=== PATIENT | female | born 1990 | race Caucasian/White ===

== ENCOUNTER 2017-07-10 21:12 | Inpatient (IN) | payer OTHER ==
[~2017-07-10] VITALS: Ht 170.2 cm; Wt 69.7 kg
[2017-07-10 22:00] LABS: HEMATOCRIT 45.7 % (36.0-46.0); HEMOGLOBIN 14.9 G/DL (11.9-15.5); MCH 28.2 PG (29.0-34.0); MCHC 32.6 G/DL (30.0-36.0); MCV 86.4 FL (83-99); PLATELET COUNT 271 K/uL (156-360); RBC DIS.WIDTH-CV 14.2 % (11.8-14.6); RBC DIS.WIDTH-SD 45.1 % (39-53); RED BLOOD COUNT 5.29 M/uL (3.80-5.20); WHITE BLOOD COUNT 15.2 K/uL (4.1-10.2)
[2017-07-10 22:09] LABS: ALBUMIN 4.4 g/dL (3.2-4.8); CHLORIDE 103 mEq/L (99-109); POTASSIUM 4.1 mEq/L (3.7-5.4); SODIUM 137 mEq/L (136-147)
[2017-07-10 22:11] LABS: GLUCOSE 141 mg/dL (70-99); TOTAL PROTEIN 8.1 g/dL (6.4-8.3)
[2017-07-10 22:13] LABS: TOTAL BILIRUBIN 0.3 mg/dL (0.0-1.0)
[2017-07-10 22:14] LABS: SERUM ETHYL ALCOHOL < 10 mg/dL
[2017-07-10 22:15] LABS: ALKALINE PHOSPHATASE 106 IU/L (3-129); CREATININE 1.1 mg/dL (0.6-1.3); GFR ESTIMATE (CALCULATED) > 59 mL/min/
[2017-07-10 22:16] LABS: AST (GOT) 34 IU/L (2-34); UREA NITROGEN (BUN) 16 mg/dL (9-23)
[2017-07-10 22:18] LABS: ALT (GPT) 51 IU/L (3-49)
[2017-07-10 22:23] LABS: QUANTITATIVE HCG < 4.0 MIU/ML
[2017-07-10 23:51] LABS: APPEARANCE CLOUDY ((CLEAR)); BILIRUBIN NEGATIVE; BLOOD NEGATIVE; COLOR YELLOW ((YELLOW)); GLUCOSE (STRIP) 150; KETONES NEGATIVE; LEUKOCYTES SMALL; NITRITE NEGATIVE; PROTEIN (STRIP) 30; SPECIFIC GRAVITY 1.015 (1.000-1.030); UROBILINOGEN 0.2 MG/DL (0.2-1.0)
[2017-07-11] VITALS (7 sets, daily range): BP systolic 86–120; BP diastolic 46–61
[2017-07-11] LABS: AMPHETAMINE NEGATIVE (500 ng/mL); BARBITURATES NEGATIVE (200 ng/mL); BENZODIAZEPINES PRESUMPTIVE POSITIVE (150 ng/mL); BUPRENORPHINE NEGATIVE (10 ng/mL); COCAINE PRESUMPTIVE POSITIVE (150 ng/mL); METHADONE NEGATIVE (200 ng/mL); METHAMPHETAMINE NEGATIVE (500 ng/mL); OPIATES (MORPHINE) PRESUMPTIVE POSITIVE (100 ng/mL); OXYCODONE NEGATIVE (100 ng/mL); PHENCYCLIDINE NEGATIVE (25 ng/mL); PROPOXYPHENE NEGATIVE (300 ng/mL); THC CANNABINOIDS PRESUMPTIVE POSITIVE (50 ng/mL); TRICYCLIC ANTIDEPRESSANTS NEGATIVE (300 ng/mL)
[2017-07-11 00:13] LABS: AMORPHOUS URATES CRYSTALS 3+; BACTERIA 3+ /HPF; EPITHELIAL CELLS 3+ /HPF; MUCUS NONE SEEN /LPF; RED BLOOD CELLS TNTC /HPF (0-5)
[2017-07-11 00:29] LABS: BENZODIAZEPINES, URINE SCREEN POSITIVE (200 ng/mL)
[2017-07-12] VITALS (7 sets, daily range): BP systolic 89–110; BP diastolic 45–68
[2017-07-12 05:43] LABS: BASOPHIL (%) 0.1 % (0-1); EOSINOPHIL (%) 0 % (0-5); HEMATOCRIT 36.2 % (36.0-46.0); HEMOGLOBIN 11.5 G/DL (11.9-15.5); IMMATURE GRANULOCYTE (%) 1.5 % (0.0-0.7); LYMPHOCYTE (%) 4.8 % (15-42); LYMPHOCYTE COUNT 1.1 K/uL (1.0-2.8); MCH 27.5 PG (29.0-34.0); MCHC 31.8 G/DL (30.0-36.0); MCV 86.6 FL (83-99); MONOCYTE (%) 1.6 % (3-12); MONOCYTE COUNT 0.4 K/uL (0-0.8); NEUTROPHIL COUNT 21.5 K/uL (1.8-6.4); PLATELET COUNT 256 K/uL (156-360); RBC DIS.WIDTH-CV 14.6 % (11.8-14.6); RBC DIS.WIDTH-SD 46.6 % (39-53); RED BLOOD COUNT 4.18 M/uL (3.80-5.20); WHITE BLOOD COUNT 23.3 K/uL (4.1-10.2)
[2017-07-13 04:03] VITALS: BP 111/72
[2017-07-13 07:32] VITALS: BP 98/55
[2017-07-13 11:11] VITALS: BP 97/52
[2017-07-13 11:14] LABS: HEMOGLOBIN 11.9 G/DL (11.9-15.5); MCHC 32.2 G/DL (30.0-36.0); MCV 87.1 FL (83-99); PLATELET COUNT 300 K/uL (156-360); RBC DIS.WIDTH-CV 14.6 % (11.8-14.6); RBC DIS.WIDTH-SD 46.9 % (39-53); RED BLOOD COUNT 4.25 M/uL (3.80-5.20); WHITE BLOOD COUNT 21.2 K/uL (4.1-10.2)
[2017-07-13 11:15] VITALS: BP 131/68
[2017-07-13 12:26] LABS: APPEARANCE CLOUDY ((CLEAR)); BILIRUBIN NEGATIVE; BLOOD MODERATE; COLOR AMBER ((YELLOW)); GLUCOSE (STRIP) >=500; KETONES NEGATIVE; LEUKOCYTES NEGATIVE; NITRITE NEGATIVE; PROTEIN (STRIP) NEGATIVE; SPECIFIC GRAVITY 1.022 (1.000-1.030); UROBILINOGEN 0.2 MG/DL (0.2-1.0)
[2017-07-13] MEDS ORDERED: AMOX TR-K CLV1 EAC4 PO (13:14)
[2017-07-13] MEDS ORDERED: Robitussin DM PO (13:14)
[2017-07-13] MEDS ORDERED: SINEQUAN50 MG PO (13:14)
[2017-07-13 13:38] LABS: BACTERIA 1+ /HPF; EPITHELIAL CELLS 1+ /HPF; MUCUS NONE SEEN /LPF; RED BLOOD CELLS 0-5 /HPF (0-5); UCUL ADDED? NO; WHITE BLOOD CELLS 0-5 /HPF (0-5)
[2017-07-13 13:39] LABS: AMORPHOUS PHOSPHATE CRYSTALS 3+
== END 2017-07-13 15:42 | disposition home or self-care (01) | DRG 917 ==
LOC: EME → EDBD 21:12 → EME 21:12 → 3EAST 07-11 02:31 → EDOF 07-11 02:31 → ENRESERV 07-11 02:32 → 3EAST 07-11 04:44
PROVIDERS: Emergency Medicine; Hospitalist; Physician Assistant Medical
DX: T40.1X1A Poisoning by heroin, accidental (unintentional), initial encounter (principal); J69.0 Pneumonitis due to inhalation of food and vomit; R09.02 Hypoxemia; F11.20 Opioid dependence, uncomplicated; F12.10 Cannabis abuse, uncomplicated; F13.10 Sedative, hypnotic or anxiolytic abuse, uncomplicated; F14.10 Cocaine abuse, uncomplicated; F17.210 Nicotine dependence, cigarettes, uncomplicated; F19.180 Other psychoactive substance abuse with psychoactive substance-induced anxiety disorder; F41.0 Panic disorder [episodic paroxysmal anxiety]; F32.9 Major depressive disorder, single episode, unspecified; R07.89 Other chest pain
CPT/HCPCS: 71045; 71275; 80053; 81003; 84702; 84999; 85025; 85027; 87502; 94010; 94760; 94799; 99202; 99281; 99285; G0480; J0295; J1650; J2310; J2405; J2930; J7030; J7050; J7120